=== PATIENT | female | born 1990 | race African-American/Black ===

== ENCOUNTER 2022-11-28 18:38 | Emergency (ER) | payer MEDICAID ==
[~2022-11-28] VITALS: Ht 170.2 cm; Wt 66.7 kg
[2022-11-28 18:43] VITALS: BP 150/112; PULSE 83; RESP 18; TEMP 98.1; O2SAT 100
[2022-11-28 18:53] VITALS: O2SAT 100
[2022-11-28] MEDS ORDERED: HYDR-5191 PO (19:06)
[2022-11-28] MEDS ORDERED: IBUP-2213 PO (19:06)
== END 2022-11-28 19:15 | disposition home or self-care (01) ==
LOC: MED 18:38
DX: R51.9 Headache, unspecified (principal); F17.200 Nicotine dependence, unspecified, uncomplicated
CPT/HCPCS: 81002; 81025; 99282

== ENCOUNTER 2022-11-30 12:47 | Emergency (ER) | payer MEDICAID ==
[~2022-11-30] VITALS: Ht 170.2 cm; Wt 65.8 kg
[~2022-11-30 12:47] MED LIST: HYDR-5191 PO; IBUP-2213 PO
[2022-11-30 12:57] VITALS: BP 134/88; PULSE 94; RESP 16; TEMP 98; O2SAT 98
[2022-11-30] MEDS ORDERED: KETOROLAC 30 MG/ML VIAL IM ONE (13:00)
[2022-11-30] MEDS ORDERED: NAPR-54 PO (13:01)
[2022-11-30] MEDS ORDERED: ACET325C8 PO (13:52)
[2022-11-30 14:12] VITALS: BP 134/88; PULSE 94; RESP 16; TEMP 98; O2SAT 98
== END 2022-11-30 14:13 | disposition home or self-care (01) ==
LOC: MED 12:47
DX: R42 Dizziness and giddiness (principal); Z79.899 Other long term (current) drug therapy
CPT/HCPCS: 99281

== ENCOUNTER 2022-12-09 13:47 | Emergency (ER) | payer MEDICAID ==
[~2022-12-09] VITALS: Ht 162.6 cm; Wt 61.2 kg
[~2022-12-09 13:47] MED LIST changes: +ACET325C8 PO; -IBUP-2213 PO
[2022-12-09 14:25] VITALS: BP 132/78; PULSE 79; RESP 17; TEMP 97.6; O2SAT 99
[2022-12-09] MEDS ORDERED: IMI25 PO (15:55)
[2022-12-09] MEDS: PROCHLORPERAZINE 5 MG TAB PO ONE (16:14)
[2022-12-09] MEDS: KETOROLAC 30 MG/ML VIAL IM ONE (16:17)
== END 2022-12-09 16:36 | disposition home or self-care (01) ==
LOC: MED 13:47
DX: R51.9 Headache, unspecified (principal); R42 Dizziness and giddiness; Z79.899 Other long term (current) drug therapy
CPT/HCPCS: 81002; 81025; 96372; 99283; J1885; Q0164